=== PATIENT | male | born 1980 | race Caucasian/White ===

== ENCOUNTER 2025-05-29 13:30 | Outpatient (CLI) | payer OTHER, SELFPAY ==
--- NOTE | 2025-05-29 13:34 | XR_ITS ---
FINAL REPORT CLINICAL HISTORY: evaluate left foot pain, hammertoe deformity FINDINGS: AP, oblique and lateral views of the left foot were obtained. There is no prior exam for comparison. There is hallux valgus deformity with prominent degenerative disc disease of the 1st metatarsal phalangeal joint. Hammertoe deformity is noted of the 2nd digit. Remaining osseous structures are without acute abnormality. Soft tissues are unremarkable. IMPRESSION: Chronic changes as above without acute osseous abnormality of the left foot. Reviewed, Interpreted and Dictated by Jenny Gamino MD Transcribed by Gunjan Carrington Authenticated and [facility]
--- NOTE | 2025-05-29 13:34 | XR_ITS ---
FINAL REPORT CLINICAL HISTORY: evaluate right foot pain/hammertoe deformity FINDINGS: AP, oblique and lateral views of the right foot were obtained. There is no prior exam for comparison. There is hallux valgus deformity with prominent degenerative disc disease of the 1st MTP joint. Hammertoe deformity is noted of the 2nd digit. Remaining osseous structures are without acute abnormality. Soft tissues are unremarkable. IMPRESSION: Chronic changes as above without acute osseous abnormality of the right foot. Reviewed, Interpreted and Dictated by Jenny Gamino MD Transcribed by Gunjan Carrington Authenticated and [facility]
== END 2025-05-29 23:59 | disposition home or self-care (01) ==
LOC: RAD 13:31
PROVIDERS: Visit Provider Podiatrist
DX: M20.42 Other hammer toe(s) (acquired), left foot (principal); M20.41 Other hammer toe(s) (acquired), right foot; M20.12 Hallux valgus (acquired), left foot; M20.11 Hallux valgus (acquired), right foot; M19.072 Primary osteoarthritis, left ankle and foot; M19.071 Primary osteoarthritis, right ankle and foot
CPT/HCPCS: 73630